=== PATIENT | female | born 1985 | race Caucasian/White ===

== ENCOUNTER 2019-07-31 07:01 | Outpatient (CLI) | payer OTHER ==
--- NOTE | 2019-07-31 07:39 | ULT ---
Hepatic sonogram with duplex evaluation HISTORY: Elevated liver function tests. FINDINGS: Gallbladder is surgically absent. Common duct is 0.8 cm. Liver is diffusely echogenic without focal m ass or intrahepatic biliary dilatation. No free fluid. The spleen measures up to 13.2 cm. Good color and spectral Doppler flow within the hepatic and splenic arteries. Portal venous flow is t owards the liver. Hepatic venous flow is towards the IVC. IMPRESSION: Status post cholecystectomy. No evidence of biliary obstruction. Hepatus steatosis. Mild splenomegaly may reflect portal venous hypertension.
== END 2019-07-31 07:02 | disposition home or self-care (01) ==
LOC: BICULT 07:01
PROVIDERS: ATTEND Internal Medicine Gastroenterology
DX: K76.6 Portal hypertension (principal); K76.0 Fatty (change of) liver, not elsewhere classified; R16.1 Splenomegaly, not elsewhere classified; Z90.49 Acquired absence of other specified parts of digestive tract
CPT/HCPCS: 76705